=== PATIENT | female | born 1965 | race Caucasian/White ===

== ENCOUNTER 2023-05-23 18:37 | Emergency (ER) | payer OTHER ==
[~2023-05-23] VITALS: Ht 154.9 cm; Wt 55.0 kg
[2023-05-23 18:42] VITALS: O2SAT 100
[2023-05-23 20:00] LABS: BASOPHILS % 0.2 % (0.0-2.0); EOSINOPHILS % 0.2 % (0.0-5.0); HEMATOCRIT. 37.9 % (36.0-48.0); HEMOGLOBIN. 12.9 g/dL (12.0-16.0); MEAN CORPUSCULAR HEMOGLOBIN 33.1 pg (28.0-32.0); MEAN CORPUSCULAR HGB CONC 34.1 g/dL (31.0-37.0); MEAN PLATELET VOLUME 8.6 fl (7.4-10.4); MONOCYTES % 2.9 % (2.0-8.0); NEUTROPHILS % 86.7 % (40.0-76.0); PLATELET 279 x1000/uL (130-400); RED BLOOD CELL COUNT 3.91 mill/uL (4.2-5.4); RED CELL DISTRIBUTION WIDTH 13.6 % (11.6-14.6); WHITE BLOOD COUNT 10.3 x1000/uL (4.5-11.0)
[2023-05-23] MEDS: METOCLOPRAMIDE HCL 5MG TABLET PO ONE (20:00)
[2023-05-23 20:20] LABS: CLARITY URINE CLEAR (CLEAR); COLOR URINE YELLOW (YELLOW); GLUCOSE URINE NEGATIVE (NEGATIVE); KETONES URINE NEGATIVE (NEGATIVE); LEUKOCYTE ESTERASE URINE 1+ (NEGATIVE); NITRITE URINE NEGATIVE (NEGATIVE); OCCULT BLOOD URINE NEGATIVE (NEGATIVE); PROTEIN URINE NEGATIVE (NEGATIVE); SPECIFIC GRAVITY URINE 1.017 (1.005-1.030); UROBILINOGEN URINE 0.2 E.U./dL (0.2-1.0)
[2023-05-23 20:26] LABS: ALANINE AMINOTRANSFERASE 11 IU/L (10-49); ALBUMIN 4.7 g/dL (3.2-4.8); ASPARTATE AMINOTRANSFERASE 27 IU/L (<34); BILIRUBIN TOTAL 0.4 mg/dL (0.1-1.0); CALCIUM 9.1 mg/dL (8.7-10.4); CARBON DIOXIDE 27 mEq/L (21-32); CHLORIDE 106 mEq/L (98-107); CREATININE 0.7 mg/dL (0.6-1.0); GLUCOSE 119 mg/dL (70-105); POTASSIUM 3.4 mEq/L (3.5-5.1); PROTEIN TOTAL 7.3 g/dL (6.0-8.3); SODIUM 138 mEq/L (136-145); TROPONIN I HIGH SENSITIVITY 5 ng/L (3.0-34); UREA NITROGEN BLOOD 18 mg/dL (9-23)
[2023-05-23 20:41] LABS: BACTERIA URINE 1+; RBC URINE 0-2 /hpf (0-2); SQUAMOUS EPITHELIAL CELL URINE 1+ /lpf (RARE/1+)
[2023-05-23] MEDS ORDERED: NITR-87 MT (20:50)
[2023-05-23] MEDS: DIPHENHYDRAMINE 25MG CAPSULE PO ONE (20:51)
[2023-05-23] MEDS: ACETAMINOPHEN 325MG TABLET PO ONE (20:52)
[2023-05-23 20:56] VITALS: BP 158/95; PULSE 84; RESP 20; TEMP 98.6
== END 2023-05-23 21:35 | disposition home or self-care (01) ==
LOC: ER 18:37
DX: F41.9 Anxiety disorder, unspecified (principal); N39.0 Urinary tract infection, site not specified; R07.89 Other chest pain; G43.909 Migraine, unspecified, not intractable, without status migrainosus
CPT/HCPCS: 99285; 70450; 71045; 80053; 81003; 81025; 85025; 84484; 36415; 93005; Q0163; J8597